=== PATIENT | female | born 1975 | race Caucasian/White ===

== ENCOUNTER → 2023-09-20 13:54 | Outpatient (REF) | payer OTHER, SELFPAY | LOC: WDC 13:54 | PROVIDERS: ATTENDING PHYSICIAN Family Medicine | DX: Z12.31 Encounter for screening mammogram for malignant neoplasm of breast (principal) | CPT/HCPCS: 77063; 77067 ==

== ENCOUNTER → 2024-02-15 09:05 | Outpatient (REF) | payer OTHER, SELFPAY | LOC: HWRAD 09:05 | PROVIDERS: ATTENDING PHYSICIAN Internal Medicine Endocrinology, Diabetes & Metabolism; FAMILY PHYSICIAN Family Medicine | DX: E04.2 Nontoxic multinodular goiter (principal) | CPT/HCPCS: 76536 ==

== ENCOUNTER → 2024-06-05 13:08 | Outpatient (REF) | payer OTHER, SELFPAY | LOC: RAD 13:08 | PROVIDERS: ATTENDING PHYSICIAN Internal Medicine Critical Care Medicine | DX: D86.9 Sarcoidosis, unspecified (principal) | CPT/HCPCS: 71046 ==

== ENCOUNTER → 2024-09-20 12:39 | Outpatient (REF) | payer OTHER, SELFPAY | LOC: WDC 12:39 | PROVIDERS: ATTENDING PHYSICIAN Family Medicine; FAMILY PHYSICIAN Family Medicine | DX: Z12.31 Encounter for screening mammogram for malignant neoplasm of breast (principal) | CPT/HCPCS: 77063; 77067 ==

== ENCOUNTER → 2025-01-19 12:41 | Outpatient (REF) | payer OTHER, SELFPAY | LOC: HWRAD 12:41 | PROVIDERS: ATTENDING PHYSICIAN Internal Medicine Endocrinology, Diabetes & Metabolism; FAMILY PHYSICIAN Family Medicine | DX: E04.2 Nontoxic multinodular goiter (principal) | CPT/HCPCS: 76536 ==